=== PATIENT | female | born 1995 | race African-American/Black ===

== ENCOUNTER 2018-03-17 08:46 | Emergency (ER) | payer OTHER ==
[~2018-03-17] VITALS: Ht 170.2 cm; Wt 58.5 kg
[2018-03-17 10:08] LABS: BASOPHILS % 0.5 % (0.0-1.0); EOSINOPHILS # (AUTO) 0.1 (0.0-0.4); EOSINOPHILS % 2.4 % (0.0-6.0); HEMATOCRIT 45.3 % (34.2-44.1); HEMOGLOBIN 15.1 g/dL (12.0-16.0); LYMPHOCYTES # (AUTO) 2.2 (1.0-3.2); LYMPHOCYTES % 59.8 % (18.0-39.1); MEAN CORPUSCULAR HGB CONC 33.3 g/dL (31-35); MONOCYTES # (AUTO) 0.5 (0.2-0.8); MONOCYTES % 14.1 % (4.4-11.3); NEUTROPHILS # (AUTO) 0.8 (2.1-6.9); NEUTROPHILS % 22.9 % (38.7-80.0); PLATELET COUNT 142 x10e3/uL (140-360); RED BLOOD COUNT 5.39 x10e6/uL (3.6-5.1)
[2018-03-17 10:41] LABS: CLARITY,URINE CLEAR (CLEAR); COLOR,URINE YELLOW (YELLOW); NITRITE,URINE NEGATIVE (NEGATIVE); PREGNANCY TEST, URINE NEGATIVE (NEGATIVE); PROTEIN,URINE DIPSTICK 1+ (NEGATIVE)
[2018-03-17 10:42] LABS: BILIRUBIN,URINE NEGATIVE (NEGATIVE); KETONES,URINE NEGATIVE (NEGATIVE); LEUKOCYTE ESTERASE ,URINE NEGATIVE (NEGATIVE); URINE UROBILINOGEN 0.2 mg/dL (0.2 - 1)
[2018-03-17 10:55] LABS: ALANINE AMINOTRANSFERASE 14 IU/L (0-55); ALBUMIN 3.9 g/dL (3.5-5.0); ALKALINE PHOSPHATASE 59 IU/L (40-150); ANION GAP 14.1 mmol/L (8-16); BLOOD UREA NITROGEN 5 mg/dL (7-26); BUN/CREATININE RATIO 5 (6-25); CALCIUM 9.1 mg/dL (8.4-10.2); CARBON DIOXIDE 26 mmol/L (22-29); CHLORIDE 103 mmol/L (98-107); CREATININE, SERUM 0.96 mg/dL (0.57-1.11); EST GLOMERULAR FILTRATION RATE > 60 ML/MIN (60-); GLUCOSE 90 mg/dL (74-118); POTASSIUM 4.1 mmol/L (3.5-5.1); SODIUM 139 mmol/L (136-145)
[2018-03-17 11:02] LABS: BACTERIA,URINE FEW /HPF; EPITHELIAL CELLS,URINE FEW /LPF
[2018-03-17 11:05] LABS: MUCUS,URINE RARE (RARE)
--- NOTE | 2018-03-17 12:24 | Diagnostic Imaging Report ---
Exam: Neck CT with IV contrast History: Left face and neck swelling Comparison studies: None Technique: Axial, coronal and sagittal images from the skull base to the thoracic inlet. Coronal and sagittal images reconstructed from the axial data. Intravenous contrast: 100 cc of Omnipaque 300. Findings: Parotid glands: Enlarged, heterogeneous, hyperenhancing left parotid gland compatible with a tightness with associated reactive changes with edema and fat stranding in the left periparotid soft tissues which extends inferiorly along the left premandibular and inferior submandibular soft tissues to the submental soft tissues and medially to the peritoneal pharyngeal space. No rim-enhancing fluid collection to indicate abscess. No calcified sialolith or parotid mass identified. Right parotid gland is homogeneous, normal in size. Soft tissues: No mass See left facial inflammatory changes as described above. Mildly prominent reactive nasopharyngeal adenoids and oropharyngeal tonsils. Dentition: Unerupted right third maxillary molar. Multiple dental fillings. No periapical lucencies. Lymph nodes: Mildly enhancing reactive left suprahyoid jugular chain lymph nodes. Vessels: Arteries and veins are patent. Thyroid gland: Homogeneous, normal in size. No mass. Submandibular glands: Homogeneous, normal in size, no mass. Reactive changes extend along the lateral margin of the left subarticular space as described above without evidence of associated reactive submandibular sialoadenitis. Paranasal sinuses: Clear aside from minimal nonspecific mucosal thickening in the right maxillary sinus. Orbits: No abnormalities. Temporal bones: No abnormalities. Skull base and facial bones: Intact. Cervical spine: Mild reversal of the usual cervical curvature which may be accentuated by patient positioning. Patent canal and foramina. IMPRESSION: 1. Nonspecific left parotitis with associated reactive left facial cellulitis. 2. No abscess or calcified sialolith. 3. Reactive left suprahyoid jugular chain lymph nodes. Signed by: Dr. Jacob Akhtar M.D. on 03/17/2018 12:20 PM
[2018-03-17] MEDS ORDERED: SODIUM CHLORIDE 0.9% 50ML 50 ML ONE (16:54)
[2018-03-17] MEDS ORDERED: IOPAMIDOL 370 MG/ML 200 ML INFUS..BTL INJ ONE (16:54)
== END 2018-03-17 13:05 | disposition home or self-care (01) ==
LOC: ER 08:46
DX: B26.9 Mumps without complication (principal)
CPT/HCPCS: 36415; 70491; 80053; 81001; 81025; 85025; 99284; Q9967

== ENCOUNTER 2019-04-29 17:22 | Emergency (ER) | payer SELFPAY ==
[~2019-04-29] VITALS: Ht 170.2 cm; Wt 58.5 kg
--- OUTSIDE RECORDS SUMMARY | 2019-04-29 17:24 | XMS REPORT ---
Author Author [facility] Address Unknown Phone Unavailable Care Team Providers Care Florist Helper Name Role Phone Zehra TELLEZ Unavailable Unavailable Problems This patient has no known problems. Allergies, Adverse Reactions, Alerts This patient has no known allergies or adverse reactions. Medications This patient has no known medications. Results Test Description Test Time Test Comments Text Results Atomic Results Result Comments CT SOFT TISSUE NECK [address] [place] [address] Patient Name: GABRIELE FULLER MR #: [id number] : 1995 Age/Sex: 22/F Req #: [id number] Adm Physician: Ordered by: KEITH TELLEZ MD Report #: [id number] Location: ER Room/Bed: Procedure: [id number] CT/CT SOFT TISSUE NECK W Exam Date: 03/17/18 Exam Time: 1145 REPORT STATUS: Signed Exam: Neck CT with IV contrast History: Left face and neck swelling Comparison studies: None Technique: Axial, coronal and sagittal images from the skull base to the thoracic inlet. Coronal and sagittal images reconstructed from the axial data. Intravenous contrast: 100 cc of Omnipaque 300. Findings: Parotid glands: Enlarged, heterogeneous, hyperenhancing left parotid gland compatible with a tightness with associated reactive changes with edema and fat stranding in the left periparotid soft tissues which extends inferiorly along the left premandibular and inferior submandibular soft tissues to the submental soft tissues and medially to the peritoneal pharyngeal space. No rim-enhancing fluid collection to indicate abscess. No calcified sialolith or parotid mass identified. Right parotid gla nd is homogeneous, normal in size. Soft tissues: No mass See left facial inflammatory changes as described above. Mildly prominent reactive nasopharyngeal adenoids and oropharyngeal tonsils. Dentition: Unerupted right third maxillary molar. Multiple dental fillings. No periapical lucencies. Lymph nodes: Mildly enhancing reactive left suprahyoid jugular chain lymph nodes. Vessels: Arteries and veins are patent. Thyroid gland: Homogeneous, normal in size. No mass. Submandibular glands: Homogeneous, normal in size, no mass. Reactive changes extend along the lateral margin of the left subarticular space as described above without evidence of associated reactive submandibular sialoadenitis. Paranasal sinuses: Clear aside from minimal nonspecific mucosal thickening in the right maxillary sinus. Orbits: No abnormalities. Temporal bones: No abnormalities. Skull base and facial bones: Intact. Cervical spine: Mild reversal of the usual cervical curvature which may be accentuated by patient positioning. Patent canal and foramina. IMPRESSION: 1. Nonspecific left parotitis with associated reactive left facial cellulitis. 2. No abscess or calcified sialolith. 3. Reactive left suprahyoid jugular chain lymph nodes. Signed by: Dr. Twila Ryder M.D. on 03/17/2018 12:20 PM Dictated By: TWILA RYDER MD 1220 Transcribed By: JORDAN on 03/17/18 1220 COPY TO: KEITH TELLEZ MD
[2019-04-29] MEDS ORDERED: IPRATROPIUM BROMIDE 0.02% 2.5 ML NEB NEB STA (17:43)
[2019-04-29] MEDS ORDERED: ALBUTEROL SULF 0.083% NEB SOLN 3 ML NEB NEB STA (17:43)
[2019-04-29] MEDS ORDERED: DEXAMETHASONE SOD PHOS 10 MG/1 ML VIAL IM NR (17:45)
--- NOTE | 2019-04-29 20:23 | Diagnostic Imaging Report ---
EXAMINATION: CHEST 2 VIEWS INDICATION: Cough, congestion, history of asthma ^ORDER PLACED BY MD ^Y COMPARISON: None FINDINGS: PA and lateral views TUBES and LINES: None. LUNGS: Lungs are well inflated. There is no evidence of pneumonia or pulmonary edema. No hyperinflation. PLEURA: No pleural effusion or pneumothorax. HEART AND MEDIASTINUM: The cardiomediastinal silhouette is unremarkable.. BONES AND SOFT TISSUES: No focal osseous lesions. Soft tissues are unremarkable. UPPER ABDOMEN: No free air under the diaphragm. IMPRESSION: No acute thoracic abnormality. Signed by: Dr. Scar Henriquez MD on 04/29/2019 8:20 PM
== END 2019-04-29 20:25 | disposition home or self-care (01) ==
LOC: ER 17:22
DX: R05 Cough (principal); J20.9 Acute bronchitis, unspecified
CPT/HCPCS: 71046; 94640; 99283; J1100